=== PATIENT | female | born 1970 | race Caucasian/White ===

== ENCOUNTER → 2021-02-13 16:22 | Outpatient (CLI) | payer BC, SELFPAY ==
--- NOTE | 2021-02-13 16:32 | DI.RAD.S_ITS ---
PROCEDURE: XR THORACIC SPINE 2V INDICATIONS: BACK PAIN TECHNIQUE: To views of the thoracic spine were acquired. COMPARISON: None. FINDINGS: Bones: No fractures or dislocations. No suspicious bony lesions. Twelve pairs of ribs are noted, and appear intact where visualized. Soft tissues: No paravertebral stripe thickening. IMPRESSION: Source of new onset back pain is not found. No compression fracture seen. Mild degenerative disc disease, chronic in appearance, incidentally noted. Dictated by: Mando Patten M.D. on 02/14/2021 at 10:07 Approved by: Mando Patten M.D. on 02/14/2021 at 10:08
--- NOTE | 2021-02-13 16:33 | DI.RAD.S_ITS ---
PROCEDURE: XR LUMBAR SPINE 2-3V INDICATIONS: BACK PAIN TECHNIQUE: 2 views of the lumbar spine were acquired. COMPARISON: None. FINDINGS: Bones: Multilevel degenerative endplate sclerosis and spurring. Diffuse facet arthropathy. Mild narrowing of the lumbar disc spaces. No acute fracture. Soft tissues: Overlying bowel gas pattern is normal. No suspicious soft tissue calcifications. IMPRESSION: Mild diffuse lumbar spondylosis and facet arthropathy. Dictated by: Adonis Bales M.D. on 02/14/2021 at 9:40 Approved by: Adonis Bales M.D. on 02/14/2021 at 9:44
--- NOTE | 2021-02-13 16:33 | DI.RAD.S_ITS ---
PROCEDURE: XR CERVICAL SPINE 2V OR 3V INDICATIONS: BACK PAIN TECHNIQUE: 2 view(s) of the cervical spine were acquired. COMPARISON: None. FINDINGS: Bones: No fractures or dislocations to the T1 level. The lateral masses of C1 appear intact on the odontoid view. No suspicious bony lesions. Soft tissues: No prevertebral soft tissue swelling. IMPRESSION: Mild degenerative disc disease at C4-5, moderate such degeneration at C5-6 and C6-7. No subluxation associated. Dictated by: Mando Patten M.D. on 02/14/2021 at 9:34 Approved by: Mando Patten M.D. on 02/14/2021 at 9:35
== END ==
PROVIDERS: Referring Provider Chiropractor; Visit Provider Chiropractor
DX: M99.01 Segmental and somatic dysfunction of cervical region (principal); M99.02 Segmental and somatic dysfunction of thoracic region; M99.03 Segmental and somatic dysfunction of lumbar region; M99.04 Segmental and somatic dysfunction of sacral region; M99.05 Segmental and somatic dysfunction of pelvic region; M54.5 Low back pain; M50.321 Other cervical disc degeneration at C4-C5 level; M47.816 Spondylosis without myelopathy or radiculopathy, lumbar region; M51.34 Other intervertebral disc degeneration, thoracic region
CPT/HCPCS: 72040; 72070; 72100